=== PATIENT | female | born 1945 | race Caucasian/White ===

== ENCOUNTER 2016-06-11 13:01 | Emergency (ER) | payer MEDICARE, BC ==
[2016-06-11 13:25] VITALS: BP 188/106
[2016-06-11] MEDS ORDERED: Gabapentin 100 MG Cap PO ONE (13:44)
[2016-06-11] MEDS ORDERED: Ketorolac 60 MG/2 ML SDV IM ONE (13:44)
--- NOTE | 2016-06-11 13:44 | EDM.PDOC ---
ED HPI HEADACHE COMPLAINT - General Chief Complaint: Headache Stated Complaint: SHARP PAIN ABOVE EAR Time Seen by Provider: 06/11/16 13:35 Source: Reports: Patient, Family History Limitations: Reports: No limitations - History of Present Illness INITIAL COMMENTS - FREE TEXT/NARRATIVE: 71-year-old female who has developed a right-sided temporal neuralgia over the past 24 hours. The pain initially started as sharp pains every 10-20 minutes, but overnight it has gotten more frequent. She has not developed a rash, she has no recent trauma to the area, no recent illness. She received her shingles immunization earlier this year. The pain is very intense but brief only 1 second to 2 seconds at the most, by periods of being asymptomatic. Location: Reports: temporal, right Quality: Reports: pounding Severity: Reports: severe - Related Data Allergies/ADRs: Allergies Allergy/AdvReac Type Severity Reaction Status Date / Time codeine Allergy Difficulty Verified 06/11/16 13:28 Breathing Home Meds: Home Meds Cyanocobalamin (Vitamin B12) [Vitamin B12] 1,000 mcg IM ASDIRECTED 05/15/14 [ History] Past Medical History HEENT History: Reports: Cataract, Impaired vision Genitourinary History: Reports: Pyelonephritis, Other (see below) Other Genitourinary History: reccurrent kidney infections - Past Surgical History HEENT Surgical History: Reports: Tonsillectomy GI Surgical History: Reports: Appendectomy, Bariatric procedure Social & Family History - Tobacco Use Smoking Status *Q: Never Smoker - Recreational Drug Use Recreational Drug Use: No ED ROS GENERAL - Review of Systems Review Of Systems: See Below Constitutional: Denies: fever, malaise HEENT: Denies: Ear pain, Hearing loss Respiratory: Denies: shortness of breath Cardiovascular: Denies: Chest pain GI/Abdominal: Denies: Abdominal pain, Nausea, Vomiting Neurological: Reports: headache (As described) Psychiatric: Reports: No symptoms - Physical Exam Exam: See Below Exam Limited By: No limitations General Appearance: alert, no apparent distress Head Exam: other (Patient has a small area of erythema just above the ear on the right side, possibly from rubbing the area) Neck: supple, non-tender Respiratory/Chest: no respiratory distress Course - Vital Signs Last Recorded V/S: Last Vital Signs Temp 98.4 F 06/11/16 13:26 Pulse 76 06/11/16 13:26 Resp 16 06/11/16 13:26 BP 188/106 H 06/11/16 13:26 Pulse Ox 96 06/11/16 13:26 - Orders/Labs/Meds Meds: Medications Discontinued Medications Generic Name Dose Route Start Last Admin Trade Name Aidee PRN Reason Stop Dose Admin Gabapentin 100 mg 06/11/16 13:44 06/11/16 14:01 Neurontin PO 06/11/16 13:45 100 mg ONETIME ONE Administration Ketorolac Tromethamine 60 mg 06/11/16 13:44 06/11/16 13:52 Toradol IM 06/11/16 13:45 60 mg ONETIME ONE Administration Lidocaine HCl 5 ml 06/11/16 14:01 06/11/16 14:08 Xylocaine-Mpf 1% INJECT 06/11/16 14:02 5 ml ONETIME ONE Administration - Re-Assessments/Exams Free Text/Narrative Re-Assessment/Exam: 06/11/16 14:51 Patient was given 60 mg of Toradol IM, along with 100 mg of gabapentin by mouth. We also tried to anesthetize the trigeminal nerve with 1% lidocaine under sterile conditions just above the ear with marginal results. I'm going to place her on 50 mg of prednisone daily for 5 days, and give her 20 Vicodin to take as needed for pain, she may need to recheck with neurology if not improving. 06/11/16 15:12 A second infiltration of lidocaine more anteriorly resolved the neuralgia. I am still going to ask the patient to take the prednisone and we'll provide her with hydrocodone if it recurs. Departure - Departure Time of Disposition: 15:20 Disposition: Home, Self-Care 01 Condition: fair Clinical Impression: Trigeminal neuralgia of right side of face Instructions: Trigeminal Neuralgia Referrals: Kamari Mckeon MD [Primary Care Provider] - Forms: ED Department Discharge Care Plan Goals: Take pain medication as needed and 50 mg or 5 pills are prednisone daily with food for at least the next 3-5 days. Try cool compresses or heat to the area if pain persists. Consider rechecking in [place] where there is neurology for further consultation if not getting relief.
== END 2016-06-11 15:23 | disposition home or self-care (01) ==
LOC: JP.ED 13:01
DX: G50.0 Trigeminal neuralgia (principal); Z90.49 Acquired absence of other specified parts of digestive tract; Z98.84 Bariatric surgery status; Z98.890 Other specified postprocedural states; Z88.5 Allergy status to narcotic agent
CPT/HCPCS: 96372; 99284; A9270; J1885; 99283